=== PATIENT | female | born 1980 | race Caucasian/White ===

== ENCOUNTER 2023-12-09 21:34 | Emergency (ER) | payer OTHER ==
[~2023-12-09] VITALS: Ht 160 cm; Wt 80.0 kg
[2023-12-09 21:38] VITALS: O2SAT 99
[2023-12-09] MEDS: SODIUM CHLORIDE 0.9% 1,000 ML IV ONE (23:00)
[2023-12-09] MEDS: KETOROLAC 30MG/ML VIAL IV STA (23:07)
[2023-12-09] MEDS: ONDANSETRON HCL 4MG/2ML INJ IV STA (23:07)
[2023-12-10 00:52] LABS: BASOPHILS % 0.2 % (0.0-2.0); EOSINOPHILS % 0.2 % (0.0-5.0); HEMOGLOBIN. 13.7 g/dL (12.0-16.0); LYMPHOCYTES % 8.7 % (20.0-50.0); MEAN CORPUSCULAR HEMOGLOBIN 32.5 pg (28.0-32.0); MEAN CORPUSCULAR HGB CONC 34.4 g/dL (31.0-37.0); MEAN CORPUSCULAR VOLUME 94.4 fL (81.0-99.0); MONOCYTES % 4.6 % (2.0-8.0); NEUTROPHILS % 86.3 % (40.0-76.0); PLATELET 228 x1000/uL (130-400); RED BLOOD CELL COUNT 4.23 mill/uL (4.2-5.4); RED CELL DISTRIBUTION WIDTH 13.1 % (11.6-14.6); WHITE BLOOD COUNT 10.9 x1000/uL (4.5-11.0)
[2023-12-10 01:03] LABS: CHLORIDE 102 mEq/L (98-107); POTASSIUM 3.8 mEq/L (3.5-5.1); SODIUM 136 mEq/L (136-145)
[2023-12-10 01:04] LABS: CALCIUM 9.4 mg/dL (8.7-10.4); CARBON DIOXIDE 27 mEq/L (21-32)
[2023-12-10 01:06] LABS: INR 0.9; PROTHROMBIN TIME 10.1 sec (9.6-11.0)
[2023-12-10 01:09] LABS: CREATININE 0.8 mg/dL (0.6-1.0); GLUCOSE 113 mg/dL (70-105); UREA NITROGEN BLOOD 14 mg/dL (9-23)
[2023-12-10 01:10] LABS: ETHANOL BLOOD < 10 mg/dL (<10)
[2023-12-10 01:11] LABS: ALANINE AMINOTRANSFERASE 26 IU/L (10-49); ALBUMIN 4.9 g/dL (3.2-4.8); ASPARTATE AMINOTRANSFERASE 21 IU/L (<34); BILIRUBIN DIRECT 0.1 mg/dL (<=3.0); BILIRUBIN TOTAL 0.4 mg/dL (0.1-1.0); PROTEIN TOTAL 8.1 g/dL (6.0-8.3)
[2023-12-10 01:19] LABS: HCG SCREEN NEGATIVE
[2023-12-10 06:37] VITALS: BP 134/92; PULSE 78; RESP 20; TEMP 97.9
[2023-12-10] MEDS: KETOROLAC 15MG/ML VIAL IV ONE (06:38)
== END 2023-12-10 06:00 | disposition short-term general hospital (02) ==
LOC: ER 21:34 → CANBEDREQ 12-11 16:31
DX: K80.20 Calculus of gallbladder without cholecystitis without obstruction (principal); I10 Essential (primary) hypertension
CPT/HCPCS: 36415; 96361; 96374; 96375; 99285; 80053; 80320; 82248; 84703; 83690; 85025; 85610; 76705; J1885; J2405; J7030; G0480